=== PATIENT | male | born 1955 | race Caucasian/White ===

== ENCOUNTER 2017-08-01 12:28 | Emergency (ER) | payer BC ==
--- NOTE | 2017-08-01 13:13 | ER Document Report ---
ED Extremity Problem, Lower - General Chief Complaint: Leg Pain Stated Complaint: RIGHT LEG PAIN, SWELLING,BRUISED Time Seen by Provider: 08/01/17 12:51 Notes: 61 yo male c/o bruising and swelling to right leg x 1 week. pt fell from truck bed catching his right leg on the tailgate. bruising has been persistant and worsening and pt noticed swelling to lower leg x several days. able to walk, but with limp. not on blood thinners. does have hx/o of bilateral knee replacements. no hx/o DVT. denies chest pain or shortness of breath. TRAVEL OUTSIDE OF THE [place] IN LAST 30 DAYS: No - HPI Location: Leg - right Occurred: Last week Where: Home Onset/Duration: Constant, Persistent, Worse Quality of pain: Achy, Dull Pain Level: 2 Recent injury: Yes Associated symptoms: Painful ambulation. denies: Chest pain, Dizzy, Fever, Hurts to breath, Rapid heart rate, Short of breath, Sweaty, Unable to bear weight Exacerbated by: Walking Relieved by: Nothing - Related Data Allergies/Adverse Reactions: hydromorphone [From Dilaudid] Allergy (Verified 08/01/17 12:35) Past Medical History - General Information source: Patient - Social History Smoking Status: Never Smoker Chew tobacco use (# tins/day): No Frequency of alcohol use: Rare Drug Abuse: None Lives with: Family Family History: Reviewed & Not Pertinent Renal/ Medical History: Denies: Hx Peritoneal Dialysis Past Surgical History: Reports: Hx Orthopedic Surgery - bilateral knees - Immunizations Hx Diphtheria, Pertussis, Tetanus Vaccination: Yes Review of Systems - Review of Systems Constitutional: No symptoms reported EENT: No symptoms reported Cardiovascular: No symptoms reported Respiratory: No symptoms reported Gastrointestinal: No symptoms reported Genitourinary: No symptoms reported Male Genitourinary: No symptoms reported Musculoskeletal: See HPI Skin: No symptoms reported Hematologic/Lymphatic: No symptoms reported Neurological/Psychological: No symptoms reported Physical Exam - Vital signs Vitals: Temp Pulse Resp BP Pulse Ox 98.3 F 89 16 160/93 H 95 08/01/17 12:34 08/01/17 12:34 08/01/17 12:34 08/01/17 12:34 08/01/17 12:34 Interpretation: Normal - General General appearance: Appears well, Alert - HEENT Head: Normocephalic, Atraumatic Eyes: Normal Pupils: PERRL - Respiratory Respiratory status: No respiratory distress Chest status: Nontender Breath sounds: Normal Chest palpation: Normal - Cardiovascular Rhythm: Regular Heart sounds: Normal auscultation Murmur: No - Abdominal Inspection: Normal Distension: No distension Bowel sounds: Normal Tenderness: Nontender Organomegaly: No organomegaly - Back Back: Normal, Nontender - Extremities General upper extremity: Normal inspection, Nontender, Normal color, Normal ROM , Normal temperature Thigh: Tender, Ecchymosis - right distal inner thigh Knee: Tender, Popliteal fossa tender - + palpable large cystic popliteal mass Calf: Tender, Ecchymosis - right proximal mediolateral gastroc soft tissue swelling and echymosis Ankle: Ecchymosis - right Foot: Ecchymosis - right dorsal mid foot and toes - Neurological Neuro grossly intact: Yes Cognition: Normal Orientation: AAOx4 Jarrod Coma Scale Eye Opening: Spontaneous [place] Coma Scale Verbal: Oriented [place] Coma Scale Motor: Obeys Commands [place] Coma Scale Total: 15 Speech: Normal Motor strength normal: LUE, RUE, LLE, RLE Sensory: Normal - Psychological Associated symptoms: Normal affect, Normal mood - Skin Skin Temperature: Warm Skin Moisture: Dry Skin Color: Normal Course - Re-evaluation Re-evalutation: 08/01/17 13:15 doppler of right leg ordered to r/o DVT. pt has signigcant bruising and soft tissue swelling. 08/01/17 14:24 US reported no DVT. + arge knight's cyst. results reviewed with patient. pt tells me he has been taking baby ASA TID per his orthopedist instructions. pt is down here visiting his son and will be returning home in 3 days. pt has an orthopedic appointment upon his arrival home. pt is stable for discharge 08/01/17 20:01 - Vital Signs Vital signs: Temp Pulse Resp BP Pulse Ox 98.4 F 69 15 139/88 H 96 08/01/17 14:50 08/01/17 14:50 08/01/17 14:50 08/01/17 14:50 08/01/17 14:50 Discharge - Discharge Clinical Impression: Hematoma Bakers cyst Qualifiers: Laterality: right Qualified Code(s): M71.21 - Synovial cyst of popliteal space [Knight], right knee Condition: Stable Disposition: HOME, SELF-CARE Instructions: Hematoma ([facility]) Additional Instructions: You have a large hematoma to your right leg but no DVT You also have a large Knight's cyst behind right knee, this is not dangerous but should be evaluated by your orthopedist continue to take your baby aspirin three times/day follow up with your orthopedist as scheduled
--- NOTE | 2017-08-01 14:48 | RADIOLOGY REPORT (SQ) ---
EXAM DESCRIPTION: VENOUS UNILATERAL LOWER COMPLETED DATE/TIME: 08/01/2017 2:32 pm REASON FOR STUDY: right lower leg swelling and bruising COMPARISON: None. TECHNIQUE: Dynamic and static foreman scale and color images acquired of the right leg venous system. S elected spectral images acquired with additional compression and augmentation maneuvers. The contrala teral common femoral vein and saphenofemoral junction were also imaged. Images stored on PACS. LIMITATIONS: None. FINDINGS: RIGHT COMMON FEMORAL: Normal phasicity, compression and augmentation. No visualized echogenic material on g ray scale. No defects on color images. FEMORAL: Normal compression and augmentation. No visualized echogenic material on foreman scale. No defe cts on color images. POPLITEAL: Normal compression, augmentation. No visualized echogenic material on foreman scale. No defec ts on color images. CALF VESSELS: Normal compression, augmentation. No visualized echogenic material on foreman scale. No de fects on color images. GSV and SSV: Normal compression, augmentation. No visualized echogenic material on foreman scale. No def ects on color images. ANY DEEP VENOUS INSUFFICIENCY: Not evaluated. ANY EVIDENCE OF POPLITEAL CYST: Yes, large 10 cm Knight's cyst is present OTHER: No other significant finding. LEFT COMMON FEMORAL VEIN AND SAPHENOFEMORAL JUNCTION: Normal phasicity, compression and augmentation. No visualized echogenic material on foreman scale. No de fects on color images. IMPRESSION: NO EVIDENCE OF DVT OR SVT IN THE RIGHT LEG. 10 CM KNIGHT'S CYST right popliteal fossa TECHNICAL DOCUMENTATION: JOB ID: [id number] [employer]- All Rights Reserved
[2017-08-01 14:51] VITALS: BP 139/88
== END 2017-08-01 14:51 | disposition home or self-care (01) ==
LOC: ER 12:28
DX: S80.11XA Contusion of right lower leg, initial encounter (principal); M71.21 Synovial cyst of popliteal space [Baker], right knee; M79.604 Pain in right leg; M79.89 Other specified soft tissue disorders; R07.9 Chest pain, unspecified; R42 Dizziness and giddiness; R50.9 Fever, unspecified; R06.02 Shortness of breath; R00.2 Palpitations; X58.XXXA Exposure to other specified factors, initial encounter
CPT/HCPCS: 93971; 99284